=== PATIENT | male | born 1950 | race Caucasian/White ===

== ENCOUNTER 2017-10-14 08:21 | Day surgery (SDC) | payer MEDICARE, BC, OTHER ==
[~2017-10-14] VITALS: Ht 188 cm; Wt 144.2 kg
[~2017-10-14 08:21] MED LIST: ASPI1TAB PO; AXIR30SO TD; CALCTAB68 PO; CENT1TAB13 PO; CETI10TA PO; FISH100049 PO; FLOM5CAP PO; LOVA20TA2 PO; NEXI40CA PO; VITA100067 PO; VITA500T PO
[2017-10-14] MEDS ORDERED: NS 1,000 ML IV ONE (08:30)
[2017-10-14] MEDS ORDERED: PROPOFOL 200 MG/20 ML VIAL As Ordered ONE ×2 (08:54→09:14)
--- NOTE | 2017-10-14 09:24 | ROOR ---
Patient Name: Surjit Mclaughlin Procedure Date: 10/14/2017 8:56 AM Date of : 1950 Age: 66 Room: [facility] Gender: Male Note Status: Finalized Procedure: Total Colonoscopy to Cecum + Bx. Indications: Screening for colorectal malignant neoplasm Providers: Kaiser Weathers MD Referring MD: Angel Richey NP Requesting Provider: Medicines: Monitored Anesthesia Care Complications: No immediate complications. Procedure: Pre-Anesthesia Assessment: - The heart rate, respiratory rate, oxygen saturations, blood pressure, adequacy of pulmonary ventilation, and response to care were monitored throughout the procedure. The Colonoscope was introduced through the anus and advanced to the cecum, identified by appendiceal orifice and ileocecal valve. The colonoscopy was performed without difficulty. The patient tolerated the procedure well. The quality of the bowel preparation was fair. Findings: The perianal and digital rectal examinations were normal. Non-bleeding internal hemorrhoids were found during retroflexion. The hemorrhoids were small and Grade I (internal hemorrhoids that do not prolapse). A diffuse area of mildly congested and erythematous mucosa was found in the recto-sigmoid colon. Biopsies were taken with a cold forceps for histology. A small polyp was found in the cecum. The polyp was sessile. The polyp was removed with a jumbo cold forceps. Resection and retrieval were complete. The exam was otherwise without abnormality on direct and retroflexion views. Impression: - Preparation of the colon was fair. - Non-bleeding internal hemorrhoids. - Congested and erythematous mucosa in the recto-sigmoid colon. Biopsied. - One small polyp in the cecum, removed with a jumbo cold forceps. Resected and retrieved. - The examination was otherwise normal on direct and retroflexion views. - The exam was otherwise normal to the cecum. Recommendation: - Patient has a contact number available for emergencies. The signs and symptoms of potential delayed complications were discussed with the patient. Return to normal activities tomorrow. Written discharge instructions were provided to the patient. - High fiber diet. - Discharge patient to home. - Continue present medications. - Await pathology results. - Telephone GI clinic for pathology results in 1 week. - Repeat colonoscopy for surveillance based on pathology results. - Return to referring physician. - The findings and recommendations were discussed with the patient's family. Kaiser Weathers MD Kaiser Weathers MD 10/14/2017 9:23:52 AM This report has been signed electronically. Number of Addenda: 0 Note Initiated On: 10/14/2017 8:56 AM Estimated Blood Loss: Estimated blood loss: none.
[2017-10-14 10:15] VITALS: BP 173/90
== END 2017-10-14 10:26 | disposition home or self-care (01) ==
LOC: M OPP 08:21
PROVIDERS: ATTEND Internal Medicine Gastroenterology
DX: Z12.11 Encounter for screening for malignant neoplasm of colon (principal); D12.0 Benign neoplasm of cecum; K63.89 Other specified diseases of intestine; K64.0 First degree hemorrhoids; E78.5 Hyperlipidemia, unspecified; I73.9 Peripheral vascular disease, unspecified; R12 Heartburn; K21.9 Gastro-esophageal reflux disease without esophagitis; R23.3 Spontaneous ecchymoses; N40.1 Benign prostatic hyperplasia with lower urinary tract symptoms; Z87.891 Personal history of nicotine dependence; Z79.82 Long term (current) use of aspirin; Z79.899 Other long term (current) drug therapy; Z80.42 Family history of malignant neoplasm of prostate

== ENCOUNTER → 2020-04-08 | Outpatient (CLI) | payer MEDICARE, BC, OTHER ==
[~2020-04-08] MED LIST changes: -ASPI1TAB PO; +ASPI81TA26 PO; +FLOM0.4C39 PO; -FLOM5CAP PO; +VITA-243 PO; -VITA500T PO
[2020-04-08 15:28] LABS: BASO # 0.1 10^3/uL (0.0-0.2); BASO % 0.8 % (0.0-1.0); EOS # 0.1 10^3/uL (0.0-0.5); EOS % 1.9 % (0.0-3.0); HEMATOCRIT 54.5 % (42.0-52.0); HEMOGLOBIN 17.6 g/dl (13.5-17.5); LYMPH # 1.2 10^3/uL (1.5-5.0); LYMPH % 18.2 % (24.0-44.0); MEAN CORPUSCULAR HEMOGLOBIN 28.3 pg (27.0-33.0); MEAN CORPUSCULAR HGB CONC 32.3 g/dl (32.0-36.5); MEAN CORPUSCULAR VOLUME 87.6 fl (80.0-96.0); MONO # 0.7 10^3/uL (0.0-0.8); MONO % 10.6 % (0.0-5.0); NEUTROPHILS # 4.4 10^3/uL (1.5-8.5); NEUTROPHILS % 67.9 % (36.0-66.0); PLATELET COUNT, AUTOMATED 206 10^3/uL (150-450); RED BLOOD COUNT 6.22 10^6/uL (4.30-6.10); WHITE BLOOD COUNT 6.5 10^3/uL (4.0-10.0)
== END ==
LOC: M PLALAB 13:04
PROVIDERS: ATTEND Family Medicine
DX: D75.1 Secondary polycythemia (principal)

== ENCOUNTER 2020-04-25 11:22 | Emergency (ER) | payer MEDICARE, BC, OTHER ==
[~2020-04-25] VITALS: Ht 188 cm; Wt 139.7 kg
--- NOTE | 2020-04-25 12:53 | REP ---
Duplex extremity venous ultrasound: Left lower extremity. History: Left leg aching. Question DVT. Findings: The deep veins are anechoic and fully compressible from the groin to the popliteal fossa in the left lower extremity. Color flow imaging is homogeneous. Spectral Doppler interrogation demonstrates intact respiratory variation in flow and normal manual augmentation of flow. There is no evidence of deep vein thrombosis. Impression: Negative left lower extremity duplex venous ultrasound. No evidence of deep vein thrombosis. Electronically Signed by Eleno James MD 04/25/2020 12:45 P
[2020-04-25 13:19] VITALS: BP 133/87
== END 2020-04-25 13:20 | disposition home or self-care (01) ==
LOC: M ED 11:22
DX: I83.813 Varicose veins of bilateral lower extremities with pain (principal); I10 Essential (primary) hypertension; J45.909 Unspecified asthma, uncomplicated; E78.00 Pure hypercholesterolemia, unspecified

== ENCOUNTER → 2020-05-09 | Outpatient (CLI) | payer MEDICARE, BC, OTHER | LOC: M PLALAB 13:32 | PROVIDERS: ATTEND Nurse Practitioner Family | DX: R71.8 Other abnormality of red blood cells (principal) ==

== ENCOUNTER → 2020-08-04 | Outpatient (CLI) | payer MEDICARE, BC, OTHER ==
[2020-08-05 08:05] LABS: BASO # 0.1 10^3/uL (0.0-0.2); BASO % 0.8 % (0.0-1.0); EOS # 0.1 10^3/uL (0.0-0.5); EOS % 1.5 % (0.0-3.0); HEMATOCRIT 54.8 % (42.0-52.0); HEMOGLOBIN 16.7 g/dl (13.5-17.5); LYMPH # 1.1 10^3/uL (1.5-5.0); LYMPH % 16.4 % (24.0-44.0); MEAN CORPUSCULAR HEMOGLOBIN 27.5 pg (27.0-33.0); MEAN CORPUSCULAR HGB CONC 30.5 g/dl (32.0-36.5); MEAN CORPUSCULAR VOLUME 90.3 fl (80.0-96.0); MONO # 0.6 10^3/uL (0.0-0.8); MONO % 9.4 % (0.0-5.0); NEUTROPHILS # 4.7 10^3/uL (1.5-8.5); NEUTROPHILS % 71.6 % (36.0-66.0); PLATELET COUNT, AUTOMATED 228 10^3/uL (150-450); RED BLOOD COUNT 6.07 10^6/uL (4.30-6.10); WHITE BLOOD COUNT 6.6 10^3/uL (4.0-10.0)
== END ==
LOC: M PLALAB 12:10
PROVIDERS: ATTEND Family Medicine
DX: D75.1 Secondary polycythemia (principal)

== ENCOUNTER → 2020-10-21 | Outpatient (CLI) | payer MEDICARE, BC, OTHER ==
--- NOTE | 2020-10-21 11:33 | REPPI ---
INDICATION: M25.551 PAIN IN RIGHT HOP. COMPARISON: None. TECHNIQUE: AP and frogleg views. FINDINGS: Femoral head is smooth and rounded. Joint space is preserved. There is minimal superior acetabular spurring consistent with mild osteoarthritis. No erosive changes. No flattening. The visualized right hemipelvis is intact. IMPRESSION: Minimal superior acetabular spurring. Otherwise negative right hip radiographs. <Electronically signed by Delfino James > 10/21/20 [id number]
[2020-10-21 13:18] LABS: BASO # 0.1 10^3/uL (0.0-0.2); BASO % 0.7 % (0.0-1.0); EOS # 0.1 10^3/uL (0.0-0.5); EOS % 1.3 % (0.0-3.0); HEMOGLOBIN 16.9 g/dl (13.5-17.5); LYMPH # 1.5 10^3/uL (1.5-5.0); LYMPH % 15.7 % (24.0-44.0); MEAN CORPUSCULAR HEMOGLOBIN 25.4 pg (27.0-33.0); MEAN CORPUSCULAR HGB CONC 31.3 g/dl (32.0-36.5); MEAN CORPUSCULAR VOLUME 81.2 fl (80.0-96.0); MONO # 0.8 10^3/uL (0.0-0.8); MONO % 8.7 % (0.0-5.0); NEUTROPHILS # 6.9 10^3/uL (1.5-8.5); PLATELET COUNT, AUTOMATED 222 10^3/uL (150-450); RED BLOOD COUNT 6.65 10^6/uL (4.30-6.10); WHITE BLOOD COUNT 9.4 10^3/uL (4.0-10.0)
[2020-10-21 13:25] LABS: BASO # 0.1 10^3/uL (0.0-0.2); BASO % 0.8 % (0.0-1.0); EOS # 0.1 10^3/uL (0.0-0.5); EOS % 1.2 % (0.0-3.0); HEMATOCRIT 54.4 % (42.0-52.0); HEMOGLOBIN 16.9 g/dl (13.5-17.5); LYMPH # 1.5 10^3/uL (1.5-5.0); LYMPH % 15.7 % (24.0-44.0); MEAN CORPUSCULAR HEMOGLOBIN 25.2 pg (27.0-33.0); MEAN CORPUSCULAR HGB CONC 31.1 g/dl (32.0-36.5); MEAN CORPUSCULAR VOLUME 81.1 fl (80.0-96.0); MONO # 0.8 10^3/uL (0.0-0.8); NEUTROPHILS # 6.7 10^3/uL (1.5-8.5); NEUTROPHILS % 72.7 % (36.0-66.0); PLATELET COUNT, AUTOMATED 229 10^3/uL (150-450); RED BLOOD COUNT 6.71 10^6/uL (4.30-6.10); WHITE BLOOD COUNT 9.3 10^3/uL (4.0-10.0)
[2020-10-21 13:49] LABS: ERYTHROCYTE SEDIMENTATION RATE 1 mm/hr (0-20)
[2020-10-21 14:02] LABS: ALBUMIN 3.8 GM/DL (3.2-5.2); ALT/SGPT 30 U/L (12-78); BILIRUBIN,TOTAL 0.9 MG/DL (0.2-1.0); BLOOD UREA NITROGEN 10 MG/DL (7-18); C REACTIVE PROTEIN QUANTITATIV 2.21 MG/DL (0.00-0.30); CALCIUM LEVEL 8.8 MG/DL (8.8-10.2); CARBON DIOXIDE LEVEL 28 MEQ/L (21-32); CHLORIDE LEVEL 104 MEQ/L (98-107); CHOLESTEROL LEVEL 156 MG/DL (<200); CHOLESTEROL RISK RATIO 4.457 (<5); CREATININE FOR GFR 1.17 MG/DL (0.70-1.30); GLOMERULAR FILTRATION RATE > 60.0 (>49); GLUCOSE, FASTING 102 MG/DL (70-100); HDL CHOLESTEROL 35 MG/DL (>40); LDL CHOLESTEROL 89 MG/DL (<100); NON-HDL-C 121 MG/DL; POTASSIUM SERUM 4.5 MEQ/L (3.5-5.1); RHEUMATOID FACTOR QUANT < 10.0 IU/ML (<15.0); SODIUM LEVEL 138 MEQ/L (136-145); TOTAL PROTEIN 7.1 GM/DL (6.4-8.2); TRIGLYCERIDES LEVEL 161 MG/DL (<150)
[2020-10-22 18:07] LABS: TESTOSTERONE FREE (DIRECT) 18.4 pg/mL (6.6-18.1)
[2020-10-24 03:06] LABS: ANTINUCLEAR ANTIBODIES DIRECT Negative (Negative); CYCLIC CITRULLINATED PEPTIDE 10 units (0-19); Lyme Disease IgG/IgM Antibodie <0.91 ISR (0.00-0.90); Lyme Disease IgM Ab Quantitati <0.80 index (0.00-0.79); TESTOSTERONE FREE (DIRECT) 18.3 pg/mL (6.6-18.1)
== END ==
LOC: M PLAIMG 10:32
PROVIDERS: ATTEND Physician Assistant
DX: Z00.01 Encounter for general adult medical examination with abnormal findings (principal); M25.551 Pain in right hip; D75.1 Secondary polycythemia; E29.1 Testicular hypofunction; I10 Essential (primary) hypertension; R79.89 Other specified abnormal findings of blood chemistry; Z12.5 Encounter for screening for malignant neoplasm of prostate
CPT/HCPCS: 36415; 73502; 80053; 80061; 84402; 84403; 85025; 85652; 86038; 86140; 86200; 86431; 86617; G0103

== ENCOUNTER → 2021-03-14 | Outpatient (CLI) | payer MEDICARE, BC, OTHER ==
[2021-03-14 16:53] LABS: BASO # 0.1 10^3/uL (0.0-0.2); EOS # 0.1 10^3/uL (0.0-0.5); EOS % 1.5 % (0.0-3.0); HEMATOCRIT 52.8 % (42.0-52.0); HEMOGLOBIN 16.4 g/dl (13.5-17.5); LYMPH # 1.2 10^3/uL (1.5-5.0); LYMPH % 16.5 % (24.0-44.0); MEAN CORPUSCULAR HEMOGLOBIN 26.1 pg (27.0-33.0); MEAN CORPUSCULAR HGB CONC 31.1 g/dl (32.0-36.5); MEAN CORPUSCULAR VOLUME 84.1 fl (80.0-96.0); MONO # 0.7 10^3/uL (0.0-0.8); MONO % 9.4 % (2.0-8.0); NEUTROPHILS # 5.2 10^3/uL (1.5-8.5); NEUTROPHILS % 71.2 % (36.0-66.0); PLATELET COUNT, AUTOMATED 259 10^3/uL (150-450); RED BLOOD COUNT 6.28 10^6/uL (4.30-6.10); WHITE BLOOD COUNT 7.3 10^3/uL (4.0-10.0)
[2021-03-14 17:21] LABS: ALT/SGPT 28 U/L (12-78); BILIRUBIN,TOTAL 0.7 MG/DL (0.2-1.0); BLOOD UREA NITROGEN 20 MG/DL (7-18); CALCIUM LEVEL 9.2 MG/DL (8.8-10.2); CARBON DIOXIDE LEVEL 30 MEQ/L (21-32); CHLORIDE LEVEL 103 MEQ/L (98-107); CHOLESTEROL LEVEL 187 MG/DL (<200); CHOLESTEROL RISK RATIO 4.921 (<5); CREATININE FOR GFR 1.21 MG/DL (0.70-1.30); GLOMERULAR FILTRATION RATE > 60.0 (>49); GLUCOSE, FASTING 87 MG/DL (70-100); HDL CHOLESTEROL 38 MG/DL (>40); LDL CHOLESTEROL 111 MG/DL (<100); NON-HDL-C 149 MG/DL; POTASSIUM SERUM 5.1 MEQ/L (3.5-5.1); SODIUM LEVEL 137 MEQ/L (136-145); TOTAL PROTEIN 7.4 GM/DL (6.4-8.2); TRIGLYCERIDES LEVEL 190 MG/DL (<150)
== END ==
LOC: M WUC 11:15
PROVIDERS: ATTEND Family Medicine
DX: R97.20 Elevated prostate specific antigen [PSA] (principal); E78.2 Mixed hyperlipidemia

== ENCOUNTER → 2021-07-14 | Outpatient (CLI) | payer MEDICARE, BC, OTHER ==
[2021-07-19 00:07] LABS: PSA TOTAL 1.6 ng/mL (0.0-4.0)
== END ==
LOC: M PLALAB 11:43
PROVIDERS: ATTEND Urology
DX: R97.20 Elevated prostate specific antigen [PSA] (principal)

== ENCOUNTER → 2021-09-18 | Outpatient (CLI) | payer MEDICARE, BC, OTHER ==
[2021-09-18 17:48] LABS: BASO # 0.1 10^3/uL (0.0-0.2); BASO % 1.2 % (0.0-1.0); EOS # 0.1 10^3/uL (0.0-0.5); EOS % 2.2 % (0.0-3.0); HEMATOCRIT 43.2 % (42.0-52.0); LYMPH # 1.4 10^3/uL (1.5-5.0); LYMPH % 22.8 % (24.0-44.0); MEAN CORPUSCULAR HEMOGLOBIN 28.9 pg (27.0-33.0); MEAN CORPUSCULAR HGB CONC 32.4 g/dl (32.0-36.5); MEAN CORPUSCULAR VOLUME 89.3 fl (80.0-96.0); MONO # 0.6 10^3/uL (0.0-0.8); MONO % 9.5 % (2.0-8.0); NEUTROPHILS # 3.8 10^3/uL (1.5-8.5); NEUTROPHILS % 63.8 % (36.0-66.0); PLATELET COUNT, AUTOMATED 201 10^3/uL (150-450); RED BLOOD COUNT 4.84 10^6/uL (4.30-6.10); WHITE BLOOD COUNT 5.9 10^3/uL (4.0-10.0)
== END ==
LOC: M PLALAB 15:04
PROVIDERS: ATTEND Family Medicine
DX: E29.1 Testicular hypofunction (principal); D75.1 Secondary polycythemia

== ENCOUNTER → 2022-05-07 | Outpatient (CLI) | payer MEDICARE, BC, OTHER ==
[2022-05-07 16:27] LABS: BASO # 0.1 10^3/uL (0.0-0.2); BASO % 0.7 % (0.0-1.0); EOS # 0.1 10^3/uL (0.0-0.5); EOS % 0.9 % (0.0-3.0); HEMATOCRIT 48.3 % (42.0-52.0); HEMOGLOBIN 14.9 g/dl (13.5-17.5); LYMPH # 1.4 10^3/uL (1.5-5.0); LYMPH % 15.2 % (24.0-44.0); MEAN CORPUSCULAR HGB CONC 30.8 g/dl (32.0-36.5); MEAN CORPUSCULAR VOLUME 77.9 fl (80.0-96.0); MONO # 0.7 10^3/uL (0.0-0.8); MONO % 7.6 % (2.0-8.0); NEUTROPHILS # 6.7 10^3/uL (1.5-8.5); NEUTROPHILS % 74.9 % (36.0-66.0); PLATELET COUNT, AUTOMATED 268 10^3/uL (150-450)
[2022-05-07 17:05] LABS: ALT/SGPT 29 U/L (12-78); BILIRUBIN,TOTAL 0.5 MG/DL (0.2-1.0); BLOOD UREA NITROGEN 12 MG/DL (7-18); CARBON DIOXIDE LEVEL 30 MEQ/L (21-32); CHLORIDE LEVEL 103 MEQ/L (98-107); CREATININE FOR GFR 1.07 MG/DL (0.70-1.30); GLOMERULAR FILTRATION RATE > 60.0 (>42); GLUCOSE, FASTING 159 MG/DL (70-100); POTASSIUM SERUM 4.3 MEQ/L (3.5-5.1); SODIUM LEVEL 139 MEQ/L (136-145); TOTAL PROTEIN 7.4 GM/DL (6.4-8.2)
[2022-05-09 21:07] LABS: TESTOSTERONE FREE (DIRECT) 5.9 pg/mL (6.6-18.1)
== END ==
LOC: M WUC 13:14
PROVIDERS: ATTEND Physician Assistant
DX: M54.50 Low back pain, unspecified (principal); E29.1 Testicular hypofunction; M16.0 Bilateral primary osteoarthritis of hip; M47.816 Spondylosis without myelopathy or radiculopathy, lumbar region; M25.78 Osteophyte, vertebrae
CPT/HCPCS: 36415; 72114; 72170; 80053; 84402; 84403; 85025; G0103

== ENCOUNTER → 2022-05-20 | Outpatient (CLI) | payer MEDICARE, BC, OTHER | LOC: M RAD 08:26 | PROVIDERS: ATTEND Physician Assistant | DX: M47.26 Other spondylosis with radiculopathy, lumbar region (principal) ==

== ENCOUNTER → 2022-06-01 | Outpatient (CLI) | payer MEDICARE, BC, OTHER | LOC: M PLAIMG 07:26 | PROVIDERS: ATTEND Physician Assistant | DX: M25.551 Pain in right hip (principal); M16.0 Bilateral primary osteoarthritis of hip ==

== ENCOUNTER → 2022-08-16 | Outpatient (CLI) | payer MEDICARE, BC, OTHER ==
[2022-08-16 12:23] LABS: BASO # 0.1 10^3/uL (0.0-0.2); BASO % 1.2 % (0.0-1.0); EOS # 0.1 10^3/uL (0.0-0.5); EOS % 1.8 % (0.0-3.0); HEMATOCRIT 45.7 % (42.0-52.0); HEMOGLOBIN 14.6 g/dl (13.5-17.5); LYMPH # 1.4 10^3/uL (1.5-5.0); LYMPH % 20.3 % (24.0-44.0); MEAN CORPUSCULAR HEMOGLOBIN 26.9 pg (27.0-33.0); MEAN CORPUSCULAR HGB CONC 31.9 g/dl (32.0-36.5); MEAN CORPUSCULAR VOLUME 84.2 fl (80.0-96.0); MONO # 0.5 10^3/uL (0.0-0.8); MONO % 7.8 % (2.0-8.0); NEUTROPHILS # 4.6 10^3/uL (1.5-8.5); NEUTROPHILS % 68.5 % (36.0-66.0); PLATELET COUNT, AUTOMATED 208 10^3/uL (150-450); RED BLOOD COUNT 5.43 10^6/uL (4.30-6.10); WHITE BLOOD COUNT 6.8 10^3/uL (4.0-10.0)
[2022-08-16 13:39] LABS: ALBUMIN 3.9 GM/DL (3.2-5.2); ALT/SGPT 43 U/L (12-78); BILIRUBIN,TOTAL 0.6 MG/DL (0.2-1.0); BLOOD UREA NITROGEN 11 MG/DL (7-18); CALCIUM LEVEL 9.4 MG/DL (8.8-10.2); CARBON DIOXIDE LEVEL 30 MEQ/L (21-32); CHLORIDE LEVEL 102 MEQ/L (98-107); CHOLESTEROL LEVEL 216 MG/DL (<200); CHOLESTEROL RISK RATIO 5.023 (<5); CREATININE FOR GFR 1.03 MG/DL (0.70-1.30); FERRITIN 164 NG/ML (26-388); GLOMERULAR FILTRATION RATE > 60.0 (>42); GLUCOSE, FASTING 109 MG/DL (70-100); HDL CHOLESTEROL 43 MG/DL (>40); IRON (FE) 132 UG/DL (65-175); LDL CHOLESTEROL 124 MG/DL (<100); NON-HDL-C 173 MG/DL; PERCENT SATURATION 36.6 % (19.7-50.0); POTASSIUM SERUM 4.2 MEQ/L (3.5-5.1); SODIUM LEVEL 137 MEQ/L (136-145); TOTAL IRON BINDING CAPACITY 361 UG/DL (250-450); TOTAL PROTEIN 7.3 GM/DL (6.4-8.2); TRIGLYCERIDES LEVEL 243 MG/DL (<150)
[2022-08-16 13:41] LABS: HEMOGLOBIN A1c 6.1 %
[2022-08-16 14:20] LABS: TOTAL 25(OH) VITAMIN D 35.8 NG/ML (30.0-100.0)
== END ==
LOC: M WUC 10:17
PROVIDERS: ATTEND Physician Assistant
DX: I10 Essential (primary) hypertension (principal)

== ENCOUNTER → 2023-03-15 | Outpatient (CLI) | payer MEDICARE, BC, OTHER ==
[2023-03-15 12:37] LABS: BASO # 0.1 10^3/uL (0.0-0.2); BASO % 1.1 % (0.0-1.0); EOS # 0.1 10^3/uL (0.0-0.5); EOS % 1.7 % (0.0-3.0); HEMATOCRIT 43.9 % (42.0-52.0); HEMOGLOBIN 14.2 g/dl (13.5-17.5); LYMPH # 1.4 10^3/uL (1.5-5.0); LYMPH % 18.1 % (24.0-44.0); MEAN CORPUSCULAR HEMOGLOBIN 28.3 pg (27.0-33.0); MEAN CORPUSCULAR HGB CONC 32.3 g/dl (32.0-36.5); MEAN CORPUSCULAR VOLUME 87.5 fl (80.0-96.0); MONO # 0.6 10^3/uL (0.0-0.8); MONO % 7.3 % (2.0-8.0); NEUTROPHILS # 5.4 10^3/uL (1.5-8.5); NEUTROPHILS % 71.5 % (36.0-66.0); PLATELET COUNT, AUTOMATED 205 10^3/uL (150-450); RED BLOOD COUNT 5.02 10^6/uL (4.30-6.10); WHITE BLOOD COUNT 7.6 10^3/uL (4.0-10.0)
[2023-03-15 12:50] LABS: HEMOGLOBIN A1c 5.9 % (4.0-6.0)
[2023-03-15 13:07] LABS: ALBUMIN 4.1 G/DL (3.2-5.2); ALKALINE PHOSPHATASE 74 U/L (46-116); ALT/SGPT 43 U/L (7.0-40); AST/SGOT 27 U/L (<34); BILIRUBIN,TOTAL 0.6 MG/DL (0.3-1.2); BLOOD UREA NITROGEN 14 MG/DL (9-23); CALCIUM LEVEL 9.5 MG/DL (8.3-10.6); CARBON DIOXIDE LEVEL 33 MMOL/L (20-31); CHLORIDE LEVEL 102 MMOL/L (98-107); CHOLESTEROL LEVEL 171 MG/DL (<200); CREATININE FOR GFR 0.91 MG/DL (0.70-1.30); FREE T4 1.13 NG/DL (0.89-1.76); GLOMERULAR FILTRATION RATE > 60.0 (>42); GLUCOSE, FASTING 99 MG/DL (74-106); HDL CHOLESTEROL 38.8 MG/DL (>40); LDL CHOLESTEROL 96.2 MG/DL (<100); NON-HDL-C 132.2 MG/DL; POTASSIUM SERUM 4.1 MMOL/L (3.5-5.1); SODIUM LEVEL 139 MMOL/L (136-145); THYROID STIMULATING HORMONE 1.888 uIU/ML (0.55-4.78); TOTAL PROTEIN 7.2 G/DL (5.7-8.2); TRIGLYCERIDES LEVEL 180 MG/DL (<150)
[2023-03-16 11:08] LABS: TESTOSTERONE FREE (DIRECT) 2.1 pg/mL (6.6-18.1)
== END ==
LOC: M WUC 10:16
PROVIDERS: ATTEND Physician Assistant
DX: I10 Essential (primary) hypertension (principal); E78.2 Mixed hyperlipidemia; E29.1 Testicular hypofunction
CPT/HCPCS: 36415; 80053; 80061; 83036; 84402; 84403; 84439; 84443; 85025; G0103

== ENCOUNTER → 2023-07-02 | Outpatient (CLI) | payer MEDICARE, BC, OTHER | LOC: M WUC 12:20 | PROVIDERS: ATTEND Nurse Practitioner Family | DX: R05.9 Cough, unspecified (principal); R06.02 Shortness of breath; I70.0 Atherosclerosis of aorta ==

== ENCOUNTER 2023-08-21 19:01 | Emergency (ER) | payer MEDICARE, BC, OTHER ==
[~2023-08-21] VITALS: Ht 188 cm; Wt 143.8 kg
[2023-08-21] MEDS ORDERED: HYDR12.55 PO (19:44)
[2023-08-21] MEDS ORDERED: MAGN400C PO (19:44)
[2023-08-21] MEDS ORDERED: GALZ25CA PO (19:44)
[2023-08-21] MEDS ORDERED: LOVA40TA PO (19:44)
[2023-08-21] MEDS ORDERED: OMEP40CA4 PO (19:44)
[2023-08-21 19:51] LABS: BASO # 0.1 10^3/uL (0.0-0.2); BASO % 0.6 % (0.0-1.0); EOS # 0.1 10^3/uL (0.0-0.5); EOS % 1.1 % (0.0-3.0); HEMATOCRIT 45.2 % (42.0-52.0); HEMOGLOBIN 14.9 g/dl (13.5-17.5); LYMPH # 1.2 10^3/uL (1.5-5.0); LYMPH % 12.7 % (24.0-44.0); MEAN CORPUSCULAR HEMOGLOBIN 28.3 pg (27.0-33.0); MEAN CORPUSCULAR VOLUME 85.8 fl (80.0-96.0); MONO # 0.9 10^3/uL (0.0-0.8); MONO % 9.8 % (2.0-8.0); NEUTROPHILS # 7.2 10^3/uL (1.5-8.5); NEUTROPHILS % 75.4 % (36.0-66.0); PLATELET COUNT, AUTOMATED 209 10^3/uL (150-450); RED BLOOD COUNT 5.27 10^6/uL (4.30-6.10); WHITE BLOOD COUNT 9.5 10^3/uL (4.0-10.0)
[2023-08-21 20:04] LABS: INR 1.21
[2023-08-21 20:10] LABS: CK-MB VALUE MASS < 1.0 NG/ML (<3.6); LIPASE 28 U/L (12-53)
[2023-08-21 20:12] LABS: ALBUMIN 3.9 G/DL (3.2-5.2); ALKALINE PHOSPHATASE 85 U/L (46-116); ALT/SGPT 44 U/L (7.0-40); AST/SGOT 23 U/L (<34); BILIRUBIN,DIRECT 0.1 MG/DL (<0.4); BILIRUBIN,TOTAL 0.5 MG/DL (0.3-1.2); BLOOD UREA NITROGEN 12 MG/DL (9-23); CALCIUM LEVEL 9.2 MG/DL (8.3-10.6); CARBON DIOXIDE LEVEL 31 MMOL/L (20-31); CHLORIDE LEVEL 101 MMOL/L (98-107); CREATININE FOR GFR 0.79 MG/DL (0.70-1.30); GLOMERULAR FILTRATION RATE > 60.0 (>42); GLUCOSE, FASTING 119 MG/DL (74-106); POTASSIUM SERUM 3.9 MMOL/L (3.5-5.1); SODIUM LEVEL 141 MMOL/L (136-145); TOTAL PROTEIN 7.2 G/DL (5.7-8.2)
[2023-08-21 20:14] LABS: CPK CREATINE PHOSPHOKINASE 80 U/L (46-171); MB/CK RELATIVE INDEX 1.25 (< OR =4)
[2023-08-21] MEDS ORDERED: ISOVUE-370 76% 100ML VIAL As Ordered ONE (20:26)
[2023-08-21] MEDS ORDERED: SUCR1TAB56 PO (21:45)
[2023-08-21 21:56] VITALS: BP 142/69; TEMP 98.2; O2SAT 94
== END 2023-08-21 21:56 | disposition home or self-care (01) ==
LOC: M ED 19:01
DX: R07.9 Chest pain, unspecified (principal); K21.9 Gastro-esophageal reflux disease without esophagitis; I10 Essential (primary) hypertension; E78.5 Hyperlipidemia, unspecified; Z87.891 Personal history of nicotine dependence; Z79.82 Long term (current) use of aspirin; Z79.811 Long term (current) use of aromatase inhibitors; Z79.899 Other long term (current) drug therapy
CPT/HCPCS: 36415; 71045; 71275; 80048; 80076; 82550; 82553; 83690; 84484; 85025; 85610; 93005; 93041; 94760; 99285; Q9967

== ENCOUNTER → 2023-09-17 | Outpatient (CLI) | payer MEDICARE, BC, OTHER ==
[~2023-09-17] MED LIST changes: +CENT1TAB2 PO; +GALZ25CA PO; +HYDR12.55 PO; +LOVA40TA PO; +MAGN400C PO; +OMEP40CA4 PO; +OYST500C PO; +SUCR1TAB56 PO; +VITA200012 PO
[2023-09-17 11:51] LABS: ALBUMIN 3.6 G/DL (3.2-5.2); ALKALINE PHOSPHATASE 74 U/L (46-116); ALT/SGPT 49 U/L (7.0-40); AST/SGOT 25 U/L (<34); BILIRUBIN,TOTAL 0.4 MG/DL (0.3-1.2); BLOOD UREA NITROGEN 13 MG/DL (9-23); CALCIUM LEVEL 8.7 MG/DL (8.3-10.6); CARBON DIOXIDE LEVEL 28 MMOL/L (20-31); CHLORIDE LEVEL 102 MMOL/L (98-107); CREATININE FOR GFR 0.79 MG/DL (0.70-1.30); GLOMERULAR FILTRATION RATE > 60.0 (>42); GLUCOSE, FASTING 102 MG/DL (74-106); POTASSIUM SERUM 3.8 MMOL/L (3.5-5.1); SODIUM LEVEL 140 MMOL/L (136-145); TOTAL PROTEIN 6.6 G/DL (5.7-8.2)
== END ==
LOC: M WUC 08:28
PROVIDERS: ATTEND Physician Assistant
DX: R73.01 Impaired fasting glucose (principal)

== ENCOUNTER 2023-09-23 11:12 | Day surgery (SDC) | payer MEDICARE, BC, OTHER ==
[~2023-09-23] VITALS: Ht 188 cm; Wt 142.4 kg
[~2023-09-23 11:12] MED LIST changes: +NS 1,000 ML IV ONE; +propofoL 200 MG/20 ML VIAL As Ordered ONE
[2023-09-23 13:52] VITALS: BP 144/85; TEMP 96.8; O2SAT 94
== END 2023-09-23 13:56 | disposition home or self-care (01) ==
LOC: M OPP 11:12
PROVIDERS: ATTEND Internal Medicine Gastroenterology
DX: Z12.11 Encounter for screening for malignant neoplasm of colon (principal); D12.6 Benign neoplasm of colon, unspecified; K64.0 First degree hemorrhoids; Z86.010 Personal history of colon polyps; K21.9 Gastro-esophageal reflux disease without esophagitis; I10 Essential (primary) hypertension; E78.00 Pure hypercholesterolemia, unspecified; Z79.899 Other long term (current) drug therapy; Z79.82 Long term (current) use of aspirin; Z87.891 Personal history of nicotine dependence

== ENCOUNTER → 2024-09-15 | Outpatient (CLI) | payer MEDICARE, BC, OTHER ==
[~2024-09-15] MED LIST changes: -NS 1,000 ML IV ONE; -propofoL 200 MG/20 ML VIAL As Ordered ONE
[2024-09-15 12:19] LABS: THYROID STIMULATING HORMONE 1.197 uIU/ML (0.55-4.78)
[2024-09-15 12:21] LABS: FOLATE > 24.0 NG/ML (>5.4); VITAMIN B12 LEVEL 957 PG/ML (211-911)
== END ==
LOC: M WUC 09:36
PROVIDERS: ATTEND Psychiatry & Neurology Neurology
DX: R25.1 Tremor, unspecified (principal); E53.9 Vitamin B deficiency, unspecified; E56.0 Deficiency of vitamin E; R73.01 Impaired fasting glucose

== ENCOUNTER → 2024-09-15 | Outpatient (CLI) | payer MEDICARE, BC, OTHER ==
[2024-09-15 11:42] LABS: BASO # 0.1 10^3/uL (0.0-0.2); EOS # 0.1 10^3/uL (0.0-0.5); EOS % 1.4 % (0.0-3.0); HEMATOCRIT 44.2 % (42.0-52.0); HEMOGLOBIN 14.4 g/dl (13.5-17.5); LYMPH # 1.6 10^3/uL (1.5-5.0); LYMPH % 22.4 % (24.0-44.0); MEAN CORPUSCULAR HEMOGLOBIN 28.4 pg (27.0-33.0); MEAN CORPUSCULAR HGB CONC 32.6 g/dl (32.0-36.5); MEAN CORPUSCULAR VOLUME 87.2 fl (80.0-96.0); MONO # 0.6 10^3/uL (0.0-0.8); MONO % 7.8 % (2.0-8.0); NEUTROPHILS # 4.9 10^3/uL (1.5-8.5); PLATELET COUNT, AUTOMATED 219 10^3/uL (150-450); RED BLOOD COUNT 5.07 10^6/uL (4.30-6.10); WHITE BLOOD COUNT 7.3 10^3/uL (4.0-10.0)
[2024-09-15 12:04] LABS: HEMOGLOBIN A1c 5.6 % (4.0-6.0)
[2024-09-15 12:15] LABS: MALB URINE SIEMENS < 3.0 MG/L
[2024-09-15 12:16] LABS: ALBUMIN 3.8 G/DL (3.2-5.2); ALKALINE PHOSPHATASE 79 U/L (40-129); ALT/SGPT 28 U/L (7.0-40); AST/SGOT 21 U/L (<34); BILIRUBIN,TOTAL 0.4 MG/DL (0.3-1.2); BLOOD UREA NITROGEN 14 MG/DL (9-23); CALCIUM LEVEL 9.8 MG/DL (8.3-10.6); CARBON DIOXIDE LEVEL 32 MMOL/L (20-31); CHLORIDE LEVEL 102 MMOL/L (98-107); CREATININE FOR GFR 0.84 MG/DL (0.70-1.30); GLOMERULAR FILTRATION RATE > 60.0 (>42); GLUCOSE, FASTING 105 MG/DL (74-106); POTASSIUM SERUM 4.3 MMOL/L (3.5-5.1); SODIUM LEVEL 140 MMOL/L (136-145); TOTAL PROTEIN 7.3 G/DL (5.7-8.2)
[2024-09-15 12:17] LABS: CREATININE, URINE 123.1 MG/DL; MAU/CREAT RATIO 2.4 MCG/MG (0.0-30.0)
== END ==
LOC: M WUC 09:34
PROVIDERS: ATTEND Physician Assistant
DX: R73.01 Impaired fasting glucose (principal)

== ENCOUNTER → 2024-10-03 | Outpatient (CLI) | payer MEDICARE, BC | LOC: M RAD 12:24 | PROVIDERS: ATTEND Psychiatry & Neurology Neurology | DX: G25.2 Other specified forms of tremor (principal); G20.A1 Parkinson's disease without dyskinesia, without mention of fluctuations ==

== ENCOUNTER → 2025-06-30 | Outpatient (CLI) | payer MEDICARE, BC ==
[~2025-06-30] MED LIST changes: -FLOM0.4C39 PO; -GALZ25CA PO; +TAMS-18 PO; +ZINC25CA2 PO
[2025-06-30 12:32] LABS: BASO # 0.0 10^3/uL (0.0-0.2); BASO % 0.5 % (0.0-1.0); EOS # 0.1 10^3/uL (0.0-0.5); EOS % 1.3 % (0.0-3.0); LYMPH # 1.6 10^3/uL (1.5-5.0); LYMPH % 20.5 % (24.0-44.0); MONO # 0.6 10^3/uL (0.0-0.8); MONO % 7.8 % (2.0-8.0); NEUTROPHILS # 5.4 10^3/uL (1.5-8.5); NEUTROPHILS % 69.6 % (36.0-66.0); PLATELET COUNT, AUTOMATED 223 10^3/uL (150-450)
[2025-06-30 12:48] LABS: PSA SCREENING 0.64 NG/ML (< 4.00)
[2025-06-30 12:53] LABS: ALT/SGPT 12 U/L (7.0-40); AST/SGOT 20 U/L (<34); CALCIUM LEVEL 9.4 MG/DL (8.3-10.6); CARBON DIOXIDE LEVEL 34 MMOL/L (20-31); CHLORIDE LEVEL 102 MMOL/L (98-107); CHOLESTEROL LEVEL 149 MG/DL (<200); CHOLESTEROL RISK RATIO 3.90 (<5); CREATININE FOR GFR 0.88 MG/DL (0.70-1.30); FREE T4 1.23 NG/DL (0.89-1.76); GLOMERULAR FILTRATION RATE > 90.0 (>42); LDL CHOLESTEROL 68.4 MG/DL (<100); NON-HDL-C 110.8 MG/DL; POTASSIUM SERUM 3.9 MMOL/L (3.5-5.1); SODIUM LEVEL 144 MMOL/L (136-145); TRIGLYCERIDES LEVEL 212 MG/DL (<150)
[2025-06-30 12:56] LABS: VITAMIN B12 LEVEL 795 PG/ML (211-911)
[2025-06-30 13:28] LABS: ESTIMATED AVERAGE GLUCOSE 114.0 MG/DL (60-110)
== END ==
LOC: M WUC 10:28
PROVIDERS: ATTEND Physician Assistant
DX: E78.2 Mixed hyperlipidemia (principal); K21.9 Gastro-esophageal reflux disease without esophagitis; R35.1 Nocturia; R25.1 Tremor, unspecified; R73.01 Impaired fasting glucose; Z12.5 Encounter for screening for malignant neoplasm of prostate
CPT/HCPCS: 36415; 80053; 80061; 82607; 82746; 83036; 84439; 84443; 85025; G0103